=== PATIENT | male | born 1980 | race Caucasian/White ===

== ENCOUNTER 2024-01-14 16:29 | Outpatient (AMB) | payer OTHER, SELFPAY ==
--- NOTE | 2024-01-14 16:30 | A.OFFPC_ITS ---
Vital Signs 01/14/24 16:33 Height 5 ft 10 in Weight 185 lb 2 oz BMI 26.6 BP 110/72 Blood Pressure Location Lt brachial Position Sitting Pulse 87 Pulse Source Pulse Oximeter Pulse Oximetry (%) 97 Oxygen Delivery Method Room Air Intake Visit Reasons: P.E Intake Note: Patient is here today for a physical. 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: Not Required per policy Accompanied by: Self / Same As Patient Allergies No Known Allergies Allergy (Verified 01/14/24 16:47) Medication List - Last Reconciled 01/14/24 by Dariusz Taylor MD sertraline 50 mg PO DAILY 90 days Tobacco use date assessed: 01/14/24 Dental Screening Dental Screen Date: 01/14/24 Did you have a dental visit in the last 12 months?: No Did you have a dental problem in the last 6 months where you did not have access to dental care?: No Was dental information given to patient?: No HPI P.E HPI Details Patient comes in today for his annual physical examination - was last seen over a year ago on 07/19/2022 Patient states that he feels okay He denies any headaches or dizziness Denies any chest pains, no SOB No nausea/vomiting, no abdominal pain No change in bowel habits noted Denies any acute urinary symptoms He feels that his depression has remained well-controlled on his current Rx and needs his Sertraline Rx refilled today PFSH Medical History Overweight (BMI 25.0-29.9) Depression Surgical History No pertinent past surgical history Family History (Updated 01/14/24 @ 16:56 by Dariusz Taylor MD) Father Factor V Leiden Mother No problems noted. Maternal Grandmother Hypertension Maternal Grandfather Stroke Other Mental health disorder Social History Housing: Apartment Alcohol intake: current Alcohol intake frequency: a few times a month Patient Tobacco Use Status: Former Tobacco user Tobacco use type: Cigarette Cigarettes Per Day: 10 e-Cigarette/Vaping Use: Never Used Second Hand Smoke Exposure: Yes service: No Current occupational status: employed Cognitive needs: No Hearing needs: No Vision needs: Yes (Glasses) Questionnaire PHQ-9 Over the last 2 weeks, how often have you been bothered by any of the following problems? 1. Little interest or pleasure in doing things: not at all 2. Feeling down, depressed, or hopeless: several days 3. Trouble falling or staying asleep, or sleeping too much: not at all 4. Feeling tired or having little energy: several days 5. Poor appetite or overeating: not at all 6. Feeling bad about yourself - or that you are a failure or have let yourself or your family down: not at all 7. Trouble concentrating on things, such as reading the newspaper or watching television: not at all 8. Moving or speaking so slowly that other people could have noticed. Or the opposite - being so fidgety or restless that you have been moving around a lot more than usual: not at all 9. Thoughts that you would be better off or of hurting yourself in some way: not at all Total score: 2 Depression Screening Interpretation: Positive Depression Screening Follow-up: Existing condition and In treatment Depression Screening Done: Yes 61152 - PHQ-9 Billing: Yes Source: Developed by Drs. Matthias Carrington, Claudia Payne, Faraz Zhang and colleagues, with an educational kassi from [employer]. Thrive Questionnaire Date Thrive assessed: 01/14/24 I am a: Patient What is your living situation today?: I have a steady place to live Within the past 12 months, did the food you bought not last and you didn't have the money to get more?: Never true Within the past 12 months, did you worry whether your food would run out before you got money to buy more?: Never true Do you have trouble paying for medicines?: No Do you have trouble getting transportation to medical appointments?: No Do you have trouble paying your heating and electricity bill?: No Do you have trouble taking care of your child, family member or friend?: No Do you have trouble with day-to-day activities such as bathing, preparing meals, shopping, managing finances, etc.?: No Are you currently unemployed and looking for a job?: No Are you interested in more education?: No Currently or been in a relationship where the following occur: no concerns reported THRIVE Score: 0 AUDIT C Alcohol Use Questionnaire (AUDIT-C) 1. How often do you have a drink containing alcohol?: 2-3 times a week 2. How many drinks containing alcohol do you have on a typical day when you are drinking?: 1 or 2 3. How often do you have six or more drinks on one occasion?: Never Total Score: 3 Score Reviewed/Action Taken: Yes JOHN-7 AMB Questionnaire JOHN-7 Date JOHN - 7 assessed: 01/14/24 Feeling nervous, anxious, or on edge: 1 = Several days Not being able to stop or control worryin = Several days Worrying too much about different things: 1 = Several days Trouble relaxin = Several days Being so restless that it is hard to sit still: 0 = Not at all Becoming easily annoyed or irritable: 0 = Not at all Feeling afraid as if something awful might happen: 0 = Not at all Total JOHN-7 score (0-4 normal; 5-9 mild; 10-14 moderate; 15-21 severe): 4 Source: Developed by Drs. Matthias Carrington, Claudia Payne, Faraz Zhang and colleagues, with an educational kassi from [employer]. Review of Systems Const Denies chills, Denies fatigue, Denies fever(s), Denies headache(s), Denies malaise and Denies weakness Eyes Denies blurry vision, Denies change in vision, Denies irritation and Denies itchy eyes ENT Denies dysphagia, Denies dizziness, Denies otalgia, Denies headache(s), Denies nasal congestion, Denies neck pain, Denies odynophagia and Denies sore throat Card Denies chest pain, Denies rapid heart rate, Denies irregular heart rhythm, Denies palpitations and Denies dyspnea Resp Denies chest congestion, Denies cough, Denies dyspnea and Denies wheezing GI Denies abdominal pain, Denies bloating, Denies constipation, Denies dysphagia, Denies heartburn, Denies diarrhea, Denies nausea, Denies odynophagia and Denies vomiting Denies hematuria, Denies difficulty urinating, Denies dysuria, Denies urinary frequency and Denies urinary urgency Musc Denies back pain, Denies arthralgias, Denies joint swelling, Denies muscle weakness and Denies neck pain Skin/Breast Denies change in pigmentation, Denies lesions, Denies rash and Denies unusual bruising Neuro Denies dizziness, Denies headache(s), Denies paresthesias and Denies weakness Endo Denies fatigue and Denies palpitations Aller/Immun Denies itchy eyes and Denies wheezing Physical exam (Primary Care) Vital Signs: Last Vital Signs Pulse 87 01/14/24 16:33 BP 110/72 01/14/24 16:33 Pulse Ox 97 01/14/24 16:33 Oxygen Delivery Method Room Air 01/14/24 16:33 BMI result Body Mass Index 26.6 Tobacco/Smoking Status: Tobacco use Status Tobacco use date assessed 01/14/24 01/14/24 16:40 Patient Tobacco Use Status Former Tobacco user 01/14/24 16:40 Tobacco use type Cigarette 01/14/24 16:40 e-Cigarette/Vaping Use Never Used 01/14/24 16:40 PHQ-9: PHQ-9 Score PHQ-9: Total score 2 01/14/24 19:09 Depression Screening Interpretation: Positive Depression Screening Follow-up: Existing condition and In treatment Thrive Assessment: Date of Thrive Assessment Date Thrive assessed 01/14/24 01/14/24 16:40 Currently or been in a relationship where the following occur: no concerns reported Const General: no acute distress, alert and awake Orientation/consciousness: patient oriented x3 HENMT Head: Yes normocephalic and Yes atraumatic Ears: external ears normal, TM's normal bilaterally and EAC's normal General nose exam: No nasal discharge present Face and sinus: Yes normal facial exam and Yes sinuses nontender Teeth and gingiva: dentition normal Throat: Yes posterior oropharynx normal and Yes tonsils normal (no TP congestion) Eyes Eyelids: Yes eyelids normal Conjunctivae: conjunctivae normal Pupils: Equal, round and reactive pupils present EOM: EOMs intact bilaterally Neck Neck: Yes no lymphadenopathy and Yes supple Thyroid: Thyroid normal Resp Auscultation: clear to auscultation bilaterally, no rales and no wheezes Cardio Rate: regular rate Rhythm: regular rhythm Heart sounds: no murmurs GI Palpation (GI): Soft to palpation, nontender and No hepatosplenomegaly present Auscultation: normal bowel sounds General: Yes no CVA tenderness Back/Spine/Pelvis Back: no CVA tenderness Thoracic/Lumbar Spine: thoracic and lumbar spine normal to inspection Skin Lesions: no lesions Rashes: no rashes Neuro General: patient oriented x3, moves all extremities, no focal motor deficits and CN's II-XI intact bilaterally Cranial nerves: Yes Equal, round and reactive pupils present Cognition (Neuro): normal cognition Gait exam (Neuro): Normal gait present Extrem General: Yes no clubbing, cyanosis or edema Assessment and Plan Assessment & Plan (1) Annual physical exam: Code(s): Z00.00 - Encounter for general adult medical examination without abnormal findings Plan: Check labs (2) Family history of factor V Leiden mutation: Code(s): Z83.2 - Family history of diseases of the blood and blood-forming organs and certain disorders involving the immune mechanism Plan: Patient states that his father has Factor V Leiden mutation and that he has also been advised that he should be tested for it as well Will send him for additional labs to check for Factor V Leiden (3) Depression: Code(s): F32.A - Depression, unspecified Qualifiers: Depression Type: major depressive disorder Major depression recurrence: recurrent Active/Remission status: currently active Major depression episode severity: unspecified Qualified Code(s): F33.9 - Major depressive disorder, recurrent, unspecified Plan: Patient is reportedly still doing well on his current Rx Continue Sertraline 50 mg QD - Rx refilled He also continues to follow up with his therapist every 2 weeks as scheduled (4) Overweight (BMI 25.0-29.9): Code(s): E66.3 - Overweight Plan: Reinforced diet/exercise as tolerated/lose weight Plan To return in 1 year for his next annual physical examination Orders: Orders Comprehensive [place]. 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, Z00.00 - Encounter for general adult medical examination without abnormal findings Medications: Refilled sertraline 50 mg PO DAILY 90 tabs 3RF 90 days F32.A - Depression, unspecified Coding Level of Care Code Est Pt Prev Care 40-64y(97022) Diagnoses Annual physical exam Z00.00 Family history of factor V Leiden mutation Z83.2 Episode of recurrent major depressive disorder, unspecified depression episode severity F33.9 Depression Type: major depressive disorder Major depression recurrence: recurrent Active/Remission status: currently active Major depression episode severity: unspecified Overweight (BMI 25.0-29.9) E66.3
[2024-01-14 16:33] VITALS: BP 110/72; PULSE 87; O2SAT 97; BMI 26.6
== END 2024-01-14 18:12 | disposition home or self-care (01) ==
PROVIDERS: PCP Internal Medicine; Visit Provider Internal Medicine
DX: Z00.00 Encounter for general adult medical examination without abnormal findings (principal); Z83.2 Family history of diseases of the blood and blood-forming organs and certain disorders involving the immune mechanism; F33.9 Major depressive disorder, recurrent, unspecified; E66.3 Overweight
CPT/HCPCS: 99396

== ENCOUNTER 2025-09-07 14:31 | Outpatient (AMB) | payer OTHER, SELFPAY ==
[2025-09-07 14:48] VITALS: BP 124/70; PULSE 69; RESP 18; O2SAT 97; BMI 25.3
--- NOTE | 2025-09-07 14:48 | A.OFFPC_ITS ---
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 Required: No Accompanied by: Self / Same As Patient Allergies No Known Allergies Allergy (Verified 09/07/25 15:01) Medication List - Last Reconciled 09/07/25 by AILYN Bragg sertraline 50 mg PO DAILY 90 days Tobacco use date assessed: 09/07/25 Dental Screening Dental Screen Date: 09/07/25 Did you have a dental visit in the last 12 months?: No Did you have a dental problem in the last 6 months where you did not have access to dental care?: No Was dental information given to patient?: No HPI annual exam HPI Details Dentist: about 10 years Eye: up to date Snellen: Right: Left: Corrected vision: yes, glasses and contact lenses STI screening: Colonoscopy: cologuard test Pap Smer: PHQ-9: Flu:never had one COVID:x3 Tdap:2019 Diet: regular Exercise:works frequently intermittently History of Present Illness The patient is a 45 year old male presenting for an annual physical examination. His last physical was in December of the previous year, and he did not complete the labs that were ordered at that time. In terms of health maintenance, the patient reports that he has not seen a dentist in about 10 years, though his eye exam is up-to-date. He has received three COVID-19 vaccines but has never had a flu vaccine. His last tetanus shot was in 2019. The patient reports occasional heart palpitations when he lies down in the afternoon, which he attributes to significant caffeine intake during the day. He denies any associated dizziness or shortness of breath. He also notes occasional indigestion that has become more frequent with age but denies heartburn. The patient was informed at a prior visit that his ears were clogged and expresses interest in having them cleaned. He is currently taking sertraline and is requesting a refill. He follows a regular diet and exercises with variable f requency, from a couple of times a week to almost daily. Health Maintenance For colorectal cancer screening, the Cologuard test was discussed and will be ordered. The patient was advised to establish care with a dentist, as he has not had a dental exam in about 10 years. New laboratory orders were placed for a fasting blood workup, including cholesterol and a Factor V Leiden test, as previous orders were not completed. Social History - Diet: Reports a regular diet. - Exercise: Exercises with variable freq uency, ranging from a couple of times per week to almost every day, and notes his endurance with running has been good. - Substance Use: Reports consuming a lot of caffeine in the morning and during the day. Results - The patient reports that labs ordered during his last visit in December of the previous year were not completed. [facility] Medical History Overweight (BMI 25.0-29.9) Depression Surgical History No pertinent past surgical history Family History Father Factor V Leiden Mother No problems noted. Maternal Grandmother Hypertension Maternal Grandfather Stroke Other Mental health disorder Social History Housing: Apartment Alcohol intake: current Alcohol intake frequency: a few times a month Patient Tobacco Use Status: Former Tobacco user Tobacco use type: Cigarette Cigarettes Per Day: 10 e-Cigarette/Vaping Use: Never Used Second Hand Smoke Exposure: Yes service: No Current occupational status: employed Cognitive needs: No Hearing needs: No Vision needs: Yes (Glasses) Questionnaire Thrive Questionnaire Date Thrive assessed: 01/14/24 JOHN-7 AMB Questionnaire JOHN-7 Date JOHN - 7 assessed: 01/14/24 Source: Developed by Drs. Matthias Carrington, Claudia Payne, Faraz Zhang and colleagues, with an educational kassi from [employer]. Review of Systems Narrative Review of Systems - General: Denies any specific concerns today. - Cardiovascular: Reports occasional heart palpitations when lying down in the afternoon, which he associates with caffeine intake. - Cardiovascular: Denies chest pain. - Respiratory: Denies shortness of breath. - Gastrointestinal: Reports occasional indigestion. - Gastrointestinal: Denies heartburn or stomach pain. - Neurological: Denies dizziness. - Otologic: Reports a sensation of clogged ears. Const Denies headache(s) Eyes Denies loss of vision ENT Denies vertigo, Denies dizziness, Denies headache(s) and Denies sore throat Card Denies chest pain, Denies leg edema and Denies lightheadedness Resp Denies cough, Denies hemoptysis and Denies wheezing GI Denies abdominal pain, Denies melena, Denies constipation, Denies diarrhea and Denies vomiting Denies dysuria, Denies urinary frequency and Denies urinary urgency Musc Denies arthralgias, Denies joint swelling, Denies numbness and Denies tingling Neuro Denies Abnormal speech present, Denies behavioral changes, Denies vertigo, Denies dizziness, Denies headache(s), Denies loss of vision, Denies memory loss, Denies numbness and Denies tingling Psych Denies anxiety, Denies behavioral changes, Denies depression, Denies memory loss and Denies panic attacks Jona/Lymph Denies easy bleeding and Denies easy bruising Aller/Immun Denies wheezing Physical exam (Primary Care) Vital Signs: Last Vital Signs Pulse 69 09/07/25 14:48 Resp 18 09/07/25 14:48 BP 124/70 09/07/25 14:48 Pulse Ox 97 09/07/25 14:48 Oxygen Delivery Method Room Air 09/07/25 14:48 BMI result Body Mass Index 25.3 Tobacco/Smoking Status: Tobacco use Status Tobacco use date assessed 09/07/25 09/07/25 14:54 Patient Tobacco Use Status Former Tobacco user 09/07/25 14:54 Tobacco use type Cigarette 09/07/25 14:54 e-Cigarette/Vaping Use Never Used 09/07/25 14:54 Thrive Assessment: Date of Thrive Assessment Date Thrive assessed 01/14/24 09/07/25 14:54 Const General: healthy appearing, no acute distress, alert and awake Nutritional Appearance: well nourished Orientation/consciousness: oriented to person, oriented to place and oriented to time HENMT Ears: Abnormal EAC present cerumen impaction bilateral General nose exam: Normal nasal mucous membranes and turbinates present Eyes Conjunctivae: conjunctivae normal Sclerae: sclerae normal Pupils: Equal, round and reactive pupils present Neck Neck: Yes no lymphadenopathy and Yes no JVD Thyroid: Thyroid normal Carotids: no bruits Resp Effort & Inspection: normal respiratory effort and not tachypneic Auscultation: no crackles, no rales, no rhonchi and no wheezes Cardio Rate: regular rate Rhythm: regular rhythm Heart sounds: S1 normal heart sound present, S2 normal heart sound present, no murmurs and normal S1 and S2 GI Palpation (GI): Soft to palpation, nontender, no hepatomegaly and no splenomegaly Auscultation: normal bowel sounds General: Yes no CVA tenderness Back/Spine/Pelvis Back: no CVA tenderness Skin General skin exam: no rashes or lesions noted and dry skin Neuro General: oriented to person, oriented to place and oriented to time Cranial nerves: Yes CN's II-XII intact bilaterally, Yes Equal, round and reactive pupils present and Yes Nystagmus not present Speech: No Abnormal speech present Gait exam (Neuro): Normal gait present Motor exam (neuro): 5/5 motor strength present throughout and no tremor noted Deep tendon reflexes (DTR's): Right triceps reflex intensity grade: 2+, Left triceps reflex intensity grade: 2+, Rt Biceps (C5, C6): 2+, Left biceps reflex intensity grade: 2+, Right brachioradialis reflex intensity grade: 2+, Left brachioradialis reflex intensity grade: 2+, Right patellar reflex intensity grade: 2+ and Left patellar reflex intensity grade: 2+ Extrem Right upper extremity: full ROM Left upper extremity: full ROM Right lower extremity: full ROM; no edema Left lower extremity: full ROM; no edema Psych Mental Status: mental status grossly normal Speech and movement: Normal speech and movement present Affect: normal affect Attitude: cooperative Thought process: Normal thought process present Coding Level of Care Code Est Pt Prev Care 40-64y([id number]) Diagnoses Annual physical exam Z00.00 Episode of recurrent major depressive disorder, unspecified depression episode severity F33.9 Depression Type: major depressive disorder Major depression recurrence: recurrent Active/Remission status: currently active Major depression episode severity: unspecified Family history of factor V Leiden mutation Z83.2 Overweight (BMI 25.0-29.9) E66.3 Heart palpitations R00.2 Bilateral impacted cerumen H61.23 Laterality: bilateral Time Spent (min) 37 Assessment & Plan Assessment & Plan (1) Annual physical exam: Code(s): Z00.00 - Encounter for general adult medical examination without abnormal findings Category: Medical Plan: The patient is a 45-year-old male who presents for an annual physical examination. Plan includes health maintenance screenings, laboratory work-up, and medication management. Cologuard ordered. A follow-up visit for his next annual physical is scheduled for next yea (2) Depression: Code(s): F32.A - Depression, unspecified Category: Medical Qualifiers: Depression Type: major depressive disorder Major depression recurrence: recurrent Active/Remission status: currently active Major depression episode severity: unspecified Qualified Code(s): F33.9 - Major depressive disorder, recurrent, unspecified Plan: Encouraged CBT Continue sertraline 50 mg daily Denies SI/HI (3) Family history of factor V Leiden mutation: Code(s): Z83.2 - Family history of diseases of the blood and blood-forming organs and certain disorders involving the immune mechanism Category: Medical Plan: Family history of factor V Leiden mutation. Labs were ordered to evaluate this previously but the patient did not complete his blood work. We will recent labs encouraged the patient to complete his blood work. (4) Overweight (BMI 25.0-29.9): Code(s): E66.3 - Overweight Category: Medical Plan: Discuss dietary modifications and activity as tolerated to aid in losing weight. (5) Heart palpitations: Code(s): R00.2 - Palpitations Category: Medical Plan: The patient reports intermittent palpitations, possibly related to high caffeine intake. He was counseled to monitor for associated symptoms such as dizziness or shortness of breath and consider reducing caffeine consumption (6) Cerumen impaction: Code(s): H61.20 - Impacted cerumen, unspecified ear Category: Medical Qualifiers: Laterality: bilateral Qualified Code(s): H61.23 - Impacted cerumen, bilateral Plan: The patient reports his ears feel clogged and is interested in having them cleaned. He was instructed to use ear-softening drops for at least four days and then schedule a dedicated appointment for ear cleaning Plan Plan Patient was informed and verbally consented to the use of an ambient scribe for clinic note documentation during this visit. 1. Annual Physical Examination The patient is a 45-year-old male who presents for an annual physical examination. Plan includes health maintenance screenings, laboratory work-up, and medication management. A follow-up visit for his next annual physical is scheduled for next year. 2. Heart Palpitations The patient reports intermittent palpitations, possibly related to high caffeine intake. He was counseled to monitor for associated symptoms such as dizziness or shortness of breath and consider reducing caffeine consumption. 3. Sertraline Refill A refill for the patient's sertraline prescription was requested. The prescription was sent to the pharmacy with additional refills provided. 4. Cerumen Impaction The patient reports his ears feel clogged and is interested in having them cleaned. He was instructed to use ear-softening drops for at least four days and then schedule a dedicated appointment for ear cleaning. Discussion Notes I discussed the plan for today's annual physical exam. We reviewed the need for age-appropriate health screenings, specifically for colorectal cancer, and I explained the option of a Cologuard test as a non-invasive initial step. I advised him to follow up with a dentist, noting it has been about 10 years since his last visit. I re-ordered labs that were missed from the previous year, including a fasting cholesterol panel and a Factor V Leiden test, and instructed the patient on the requirement to fast beforehand. We discussed his heart palpitations and their likely link to caffeine intake, and I advised him to monitor for any other symptoms. Regarding the cerumen in his ears, I outlined the recommended procedure, which involves using softening drops for several days before scheduling a separate appointment for ear cleaning. I sent a refill for his sertraline prescription to his pharmacy with additional refills. We scheduled his next annual physical for the following year. Patient Instructions - Please complete the blood work that has been ordered for you. - You must fast (no food or drink, except for water) for about 8-10 hours before your blood test, as we are checking your cholesterol. - A Cologuard kit for colorectal cancer screening will be ordered for you. - Your prescription for sertraline has been refilled and sent to your pharmacy. - It is recommended that you schedule an appointment with a dentist, as it has been about 10 years since your last visit. - If you wish to have your ears cleaned, please use [id number] ear wax softening drops for at least 4 days straight, and then call our office to schedule a separate appointment for an ear cleaning. - Consider reducing your caffeine intake to see if it helps with the heart palpitations. - Your next yearly physical exam is scheduled for next year. Orders: Orders Complete Blood Count Auto Diff 09/07/25 E66.3 - Overweight, F33.9 - Major depressive disorder, recurrent, unspecified, Z00.00 - Encounter for general adult medical examination without abnormal findings, Z13.220 - Encounter for screening for lipoid disorders, Z13.29 - Encounter for screening for other suspected endocrine disorder, Z83.2 - Family history of diseases of the blood and blood-forming organs and certain disorders involving the immune mechanism Lipid Panel 09/07/25 E66.3 - Overweight, F33.9 - Major depressive disorder, recurrent, unspecified, Z00.00 - Encounter for general adult medical examination without abnormal findings, Z13.220 - Encounter for screening for lipoid disorders, Z13.29 - Encounter for screening for other suspected endocrine disorder, Z83.2 - Family history of diseases of the blood and blood-forming organs and certain disorders involving the immune mechanism Factor V Leiden 09/07/25 E66.3 - Overweight, F33.9 - Major depressive disorder, recurrent, unspecified, Z00.00 - Encounter for general adult medical examination without abnormal findings, Z13.220 - Encounter for screening for lipoid disorders, Z13.29 - Encounter for screening for other suspected endocrine disorder, Z83.2 - Family history of diseases of the blood and blood-forming organs and certain disorders involving the immune mechanism Comprehensive [place]. Panel Fast 09/07/25 E66.3 - Overweight, F33.9 - Major depressive disorder, recurrent, unspecified, Z00.00 - Encounter for general adult medical examination without abnormal findings, Z13.220 - Encounter for screening for lipoid disorders, Z13.29 - Encounter for screening for other suspected endocrine disorder, Z83.2 - Family history of diseases of the blood and blood-forming organs and certain disorders involving the immune mechanism UA CC w/rflx Micro + Cult 09/07/25 E66.3 - Overweight, F33.9 - Major depressive disorder, recurrent, unspecified, Z00.00 - Encounter for general adult medical examination without abnormal findings, Z13.220 - Encounter for screening for lipoid disorders, Z13.29 - Encounter for screening for other suspected endocrine disorder, Z83.2 - Family history of diseases of the blood and blood-forming organs and certain disorders involving the immune mechanism TSH reflex Free T4 09/07/25 E66.3 - Overweight, F33.9 - Major depressive disorder, recurrent, unspecified, Z00.00 - Encounter for general adult medical examination without abnormal findings, Z13.220 - Encounter for screening for lipoid disorders, Z13.29 - Encounter for screening for other suspected endocrine disorder, Z83.2 - Family history of diseases of the blood and blood-forming organs and certain disorders involving the immune mechanism Vitamin D 25-OH Total 09/07/25 E66.3 - Overweight, F33.9 - Major depressive disorder, recurrent, unspecified, Z00.00 - Encounter for general adult medical examination without abnormal findings, Z13.220 - Encounter for screening for lipoid disorders, Z13.29 - Encounter for screening for other suspected endocrine disorder, Z83.2 - Family history of diseases of the blood and blood-forming organs and certain disorders involving the immune mechanism PSA,Total (Free>4and<10) 09/07/25 E66.3 - Overweight, F33.9 - Major depressive disorder, recurrent, unspecified, Z00.00 - Encounter for general adult medical examination without abnormal findings, Z13.220 - Encounter for screening for lipoid disorders, Z13.29 - Encounter for screening for other suspected endocrine disorder, Z83.2 - Family history of diseases of the blood and blood-forming organs and certain disorders involving the immune mechanism Referrals Cologuard Test Z12.11 - Encounter for screening for malignant neoplasm of colon, Z12.12 - Encounter for screening for malignant neoplasm of rectum Medications: Refilled sertraline 50 mg PO DAILY 90 tabs 3RF 90 days F32.A - Depression, unspecified
--- OUTSIDE RECORDS SUMMARY | 2025-09-07 19:26 | XMS_ITS | Clinical Summary ---
Author Organization [facility] Address [address] [place] [address] Phone Care Team Providers Care Gut Cleaner Name Role Phone Dariusz Taylor MD Primary Care Provider [phone] Allergies No known active allergies Medications sertraline (ZOLOFT) 50 MG tablet Take 50 mg by mouth daily. Active predniSONE (DELTASONE) 10 MG tablet Take 1 tablet (10 mg total) by mouth daily. 60 mg for 2 days, then 40 mg for 2 days, then 20 mg for 2 days, then 10 mg for 2 days 26 tablet 04/14/2023 Active Active Problems No known active problems Immunizations Immunization Administration Dates Next Due Tdap 06/22/2020 Social History Tobacco Use Types Packs/Day Years Used Date Smoking Tobacco: Every Day Cigarettes 0.5 6.2 Started: 06/08/2019 Smokeless Tobacco: Former Tobacco Cessation:Ready to Q uit: No Alcohol Use Standard Drinks/Week Comments Yes 0 (1 standard drink = 0.6 oz pure alcohol) five drinks from 2pm to midnight tonight Education Answer Date Recorded Are you interested in more education? Not on lida e 01/17/2023 Are you concerned about learning? Not on file 01/17/2023 No 01/17/2023 No 01/17/2023 Digital Access Answer Date Recorded No 02/14/2023 No 02/14/2023 Reliable internet access at home? Not on file 02/14/2023 Device with a working camera? Not on file Sex and Gender Information Value Date Recorded Sex Assigned at Male 05/31/2020 11:26 AM EDT Legal Sex Male 9:22 PM EDT Gender Identity Male 05/31/2020 11:26 AM EDT Sexual Orientation Not on file Last Filed Vital Signs Vital Sign Reading Time Taken Comments Blood Pressure 115/85 02/15/2022 3:44 PM EDT Pulse 88 02/15/2022 3:44 PM EDT Temperature 36.7 C (98 F) 02/15/2022 3:44 PM EDT Respiratory Rate 16 02/15/2022 3:44 PM EDT Oxygen Saturation 99% 02/15/2022 3:44 PM EDT Inhaled Oxygen Concentration - - Weight 72.6 kg (160 lb) 06/22/2020 12:50 AM EDT Height 177.8 cm (5' 10 ) 06/22/2020 12:50 AM EDT Body Mass Index 22.96 06/22/2020 12:50 AM EDT Plan of Treatment Health Maintenance Due Date Last Done Comments LIPID PANEL 1980 DEPRESSION SCREENING 1992 SMOKING Hx and SMOKELESS TOBACCO SCREENING 02/02/1993 HEPATITIS C SCREENING 02/02/1998 HIV ONE-TIME SCREENING (18-6 5 YEARS) 02/02/1998 PNEUMOCOCCAL VACCINES (0-49 years) (1 of 2 - PCV) 02/02/1999 COLOGUARD 02/02/2025 COLONOSCOPY 02/02/2025 COLORECTAL CANCER SCREENING 02/02/2025 FIT TEST 02/02/2025 FOBT 02/02/2025 SIGMOIDOSCOPY 02/02/2025 VIRTUAL COLONOSCOPY 02/02/2025 INFLUENZA VACCINE (#1) 2025 COVID-19 VACCINE (3 - 2024-2 6 season) 2025 06/20/2021, 04/19/2021 Adult Td,Tdap Booster 06/22/2030 06/22/2020 , 06/25/2013 HEPATITIS A VACCINES Aged Out No long er eligible based on patient's age to complete this topic HIB VACCINES Aged Out No longer eligi ble based on patient's age to complete this topic MENINGOCOCCAL VACCINES (ACWY) Aged Out No longer eligible based on patient's age to complete this topic MENINGOCOCCAL VACCINES (B) Aged Out N o longer eligible based on patient's age to complete this topic Medical Devices Not on file Insurance Care Teams Gut Cleaner Relationship Specialty Start Date End Date Dariusz Taylor MD [address] [place] [address] [place] [address] PCP - General Internal Medicine 05/31/20 Additional Source Comments The information contained in this document represents components of the legal health record. It is not the complete legal health record.[facility]
--- OUTSIDE RECORDS SUMMARY | 2025-09-07 19:26 | XMS_ITS | Clinical Summary ---
Author Organization [facility] Address [address] [place] [id number] Care Team Providers Care Fitness Studies Teacher Name Role Phone Unavailable Primary Care Provider Unavailabl e Social History Tobacco Use Types Packs/Day Years Used Date Smoking Tobacco: Never Assessed Sex and Gender Information Value Date Recorded Sex Assigned at Not on file Legal Sex Male 5:18 AM EST Gender Identity Not on file Sexual Orientation Not on file Plan of Treatment Not on file
== END 2025-09-07 15:19 | disposition home or self-care (01) ==
LOC: HO.HMCH 14:32
PROVIDERS: PCP Internal Medicine
DX: Z00.00 Encounter for general adult medical examination without abnormal findings (principal); F33.9 Major depressive disorder, recurrent, unspecified; Z83.2 Family history of diseases of the blood and blood-forming organs and certain disorders involving the immune mechanism; E66.3 Overweight; R00.2 Palpitations; H61.23 Impacted cerumen, bilateral

== ENCOUNTER → 2025-09-07 14:31 | Outpatient (BNVA) | payer OTHER, SELFPAY | PROVIDERS: PCP Internal Medicine | DX: Z00.00 Encounter for general adult medical examination without abnormal findings (principal); R00.2 Palpitations; F33.9 Major depressive disorder, recurrent, unspecified; E66.3 Overweight; H61.23 Impacted cerumen, bilateral; Z83.2 Family history of diseases of the blood and blood-forming organs and certain disorders involving the immune mechanism; Z68.25 Body mass index [BMI] 25.0-25.9, adult; Z79.899 Other long term (current) drug therapy | CPT/HCPCS: 99396 ==